=== PATIENT | female | born 1965 | race American Indian/Alaskan Native ===

== ENCOUNTER 2017-01-02 19:44 | Emergency (ER) | payer OTHER ==
[2017-01-02] MEDS ORDERED: CATAPRES PO ONE (20:50)
[2017-01-03] MEDS ORDERED: DILAUDID IM ONE (01:53)
[2017-01-03] MEDS ORDERED: ZOFRAN ODT PO ONE ×2 (01:54→04:10)
--- NOTE | 2017-01-03 02:17 | Emergency Department Report ---
HPI - General Chief Complaint: High BP Time Seen by Provider: 01/03/17 01:39 - HPI HPI: This is a 51-year-old Afro-[place] female presents to the emergency department with complaint of a headache, uncontrolled blood pressure and some paresthesias. The patient says that she has history of hypertension, diagnosed this summer, but she has been out of her Norvasc. Patient also has history of migraines says that this feels similar but she is not on any medications prophylactically. Patient went to work today and started feeling "terrible" with this headache and some paresthesias and they checked her blood pressure down to be 180/120. She tried to get it to go down by relaxing and drinking some Coke and water but it did not help. For this reason she came in to be seen. No recent travel or sick contacts at home. She denies tobacco abuse or any illicit drug use or abuse. She does not have a primary care doctor. ED Past Medical Hx - Past Medical History Hx Hypertension: Yes Hx Headaches / Migraines: Yes - Surgical History Past Surgical History?: No - Social History Smoking Status: Current Every Day Smoker Substance Use Type: Alcohol, Marijuana - Medications Home Medications: Home Medications Medication Instructions Recorded Confirmed Last Taken Type ALBUTEROL Inhaler [ProAir HFA 2 puff IH QID PRN #1 inhalation 10/12/13 06/09/16 Unknown Rx Inhaler] amLODIPine [Norvasc] 5 mg PO DAILY #30 tab 01/03/17 Unknown Rx traMADol [Ultram 50 MG tab] 50 mg PO Q4HR PRN #10 tablet 01/03/17 Unknown Rx ED Review of Systems ROS: Stated complaint: HIGH BP/MIGRAINE Other details as noted in HPI Comment: All other systems reviewed and negative Constitutional: denies: chills, fever Eyes: denies: eye pain, eye discharge, vision change ENT: denies: ear pain, throat pain Respiratory: denies: cough, shortness of breath, wheezing Cardiovascular: denies: chest pain, palpitations Gastrointestinal: denies: abdominal pain, nausea, diarrhea Genitourinary: denies: urgency, dysuria, discharge Musculoskeletal: denies: back pain, joint swelling, arthralgia Skin: denies: rash, lesions Neurological: headache, paresthesias. denies: weakness, numbness Physical Exam - Physical Exam Vital Signs: Vital Signs 01/02/17 01/02/17 01/03/17 20:43 20:55 01:15 Temperature 99 F 98.8 F Pulse Rate 66 66 71 Respiratory 18 18 Rate Blood Pressure 180/110 180/110 Blood Pressure 170/105 [Left] O2 Sat by Pulse 100 100 Oximetry Physical Exam: GENERAL: The patient is well-developed well-nourished. HEENT: Normocephalic. Atraumatic. Extraocular motions are intact. Patient has moist mucous membranes. Pupils equal reactive to light bilaterally. NECK: Supple. Trachea is midline. CHEST/LUNGS: Clear to auscultation. There is no respiratory distress noted. HEART/CARDIOVASCULAR: Regular. There is no tachycardia. There is no gallop rub or murmur. ABDOMEN: Abdomen is soft, nontender. Patient has normal bowel sounds. There is no abdominal distention. SKIN: Skin is warm and dry. NEURO: The patient is awake, alert, and oriented. The patient is cooperative. The patient has no focal neurologic deficits. The patient has normal speech. Cranial nerves II through XII grossly intact. No pronator drift. No dysmetria. MUSCULOSKELETAL: There is no tenderness or deformity. There is no limitation range of motion. There is no evidence of acute injury. ED Course Vital Signs 01/02/17 01/02/17 01/03/17 20:43 20:55 01:15 Temperature 99 F 98.8 F Pulse Rate 66 66 71 Respiratory 18 18 Rate Blood Pressure 180/110 180/110 Blood Pressure 170/105 [Left] O2 Sat by Pulse 100 100 Oximetry ED Medical Decision Making - Medical Decision Making This is a 51-year-old female presents to the emergency department with complaint of uncontrolled blood pressure and a headache. Patient's headache is apparently consistent with her previous migraine headaches. She does not have any focal, motor or sensory deficits in her cranial nerves are intact. Patient was given some Catapres through triage that brought her pressure down to about 160/90. Patient was given a shot of Dilaudid for her headache. Upon reevaluation her headache is greatly improved and her blood pressures come down to a more normal level. The patient used to and Norvasc but has not been taking the medications due to the inability to afford them and a lack of a primary care doctor. Patient appears safe for discharge home at this time. Since the headache is consistent with previous headaches/migraines, since she does not have any neurological deficits, I do not believe any CT imaging of the head is necessary at this time. Patient will be given a refill of her Norvasc, a few pain pills to help finish off headache and multiple referrals for primary care. We also discussed dietary changes and tobacco cessation. She will return to the ER with any worsening of her symptoms or any acute distress. - Differential Diagnosis hypertensive urgency, tension headache, migraine headache, cluster headache Critical Care Time: No Critical care attestation.: If time is entered above; I have spent that time in minutes in the direct care of this critically ill patient, excluding procedure time. ED Disposition Clinical Impression: Noncompliance with medication regimen Headache Qualifiers: Headache type: unspecified Headache chronicity pattern: acute headache Intractability: not intractable Qualified Code(s): R51 - Headache Hypertension Qualifiers: Hypertension type: essential hypertension Qualified Code(s): I10 - Essential ( primary) hypertension Disposition: DISCHARGED TO HOME OR SELFCARE Is pt being admited?: No Condition: Good Instructions: Hypertension (ED), Migraine Headache (ED) Additional Instructions: Please follow-up with a primary care doctor in the next few days. Return to the emergency department with any worsening of your symptoms or any acute distress. Try to stay away from foods that are high in salt, caffeinated products, and try to quit smoking, and order to assist with your elevated blood pressure. You've been prescribed a medication that is sedating. Therefore this medication cannot be mixed with alcohol, or taken prior to driving, working, or being responsible for children. Prescriptions: amLODIPine [Norvasc] 5 mg PO DAILY #30 tab traMADol [Ultram 50 MG tab] 50 mg PO Q4HR PRN #10 tablet PRN Reason: Pain Referrals: PRIMARY CARE, [Primary Care Provider] - 3-5 Days [facility] [Outside] - 3-[address] [facility] [place] [Outside] - 3-5 Days [facility] [Outside] - 3-5 Days [facility] [Outside] - 3-5 Days Time of Disposition: 03:50
[2017-01-03 03:28] VITALS: BP 126/75
== END 2017-01-03 04:17 | disposition home or self-care (01) ==
LOC: ED 19:44
DX: I10 Essential (primary) hypertension (principal); G43.909 Migraine, unspecified, not intractable, without status migrainosus; F17.200 Nicotine dependence, unspecified, uncomplicated; F12.10 Cannabis abuse, uncomplicated; Z91.14 Patient's other noncompliance with medication regimen; Z88.6 Allergy status to analgesic agent
CPT/HCPCS: 96372; 99282; J1170; Q0162